=== PATIENT | male | born 1955 | race Caucasian/White ===

== ENCOUNTER → 2018-07-07 08:06 | Outpatient (CLI) | payer OTHER | END | disposition home or self-care (01) | LOC: D.US 08:06 | DX: R10.31 Right lower quadrant pain (principal) ==

== ENCOUNTER → 2018-09-22 06:59 | Outpatient (CLI) | payer OTHER ==
[2018-09-22 08:00] LABS: ALBUMIN 3.8 g/dL (3.4-5.0); BILIRUBIN - DIRECT 0.11 mg/dL (0.00-0.30); BILIRUBIN - INDIRECT 0.46 mg/dL (0.00-1.00); BILIRUBIN - TOTAL 0.57 mg/dL (0.2-1.3); PROTEIN - SERUM 7.3 g/dL (6.4-8.2)
== END | disposition home or self-care (01) ==
LOC: D.US 06:59
PROVIDERS: Internal Medicine Gastroenterology
DX: R93.89 Abnormal findings on diagnostic imaging of other specified body structures (principal); K82.8 Other specified diseases of gallbladder

== ENCOUNTER → 2018-09-29 07:42 | Outpatient (CLI) | payer OTHER | END | disposition home or self-care (01) | LOC: D.MRI 07:42 | DX: K76.9 Liver disease, unspecified (principal); R93.819 Abnormal radiologic findings on diagnostic imaging of unspecified testicle ==

== ENCOUNTER → 2018-10-20 07:31 | Outpatient (CLI) | payer OTHER | END | disposition home or self-care (01) | LOC: D.MRI 07:31 | DX: M54.12 Radiculopathy, cervical region (principal) ==

== ENCOUNTER → 2019-03-02 08:15 | Outpatient (CLI) | payer OTHER | END | disposition home or self-care (01) | LOC: D.US 08:15 | PROVIDERS: ATTEND Internal Medicine Cardiovascular Disease | DX: K76.0 Fatty (change of) liver, not elsewhere classified (principal) ==

== ENCOUNTER 2019-03-23 06:45 | Outpatient (CLI) | payer OTHER ==
[2019-03-02 09:04] LABS: ALBUMIN 4.1 g/dL (3.4-5.0); BILIRUBIN - DIRECT 0.19 mg/dL (0.00-0.30); BILIRUBIN - INDIRECT 0.95 mg/dL (0.00-1.00); BILIRUBIN - TOTAL 1.14 mg/dL (0.2-1.3); PROTEIN - SERUM 7.3 g/dL (6.4-8.2)
[~2019-03-23] VITALS: Ht 182.9 cm; Wt 100.5 kg
--- NOTE | ~2019-03-23 | HEMODYNAMI ---
PATIENT:THONY TIRADO MEDICAL RECORD: [id number] : 53 [facility] ADMISSION DATE: 03/23/19 Generatedon:03/23/20198:57 Patient name: THONY TIRADO Patient #: [id number] SSN: : 1955 Date of study: 03/23/2019 Page: Of Hemodynamic Procedure Report Patient Data Patient Demographics Procedure consent was obtained First Name: THONY Gender: Male Last Name: CELESTINO : 1955 [facility] Initial: PRANAV Age: 63 year(s) Patient #: [id number] Race: Unknown Additional ID: [id number] Contact details [address]: [address] [place] [address] State: [place] City: [place] Zip code: [address] Past Medical History Allergies Allergen Reaction Date Comments Reported Other allergy 03/23/2019 shellfish Admission Admission Data Admission Date: 03/23/2019 Admission Time: 6:45 Admit Source: Other Room #: D.RICH Weight (lbs.): 220.46 Weight (kg.): 100 Lab Results Lab Result Date: 03/23/2019 Lab Result Time: 7:37 Biochemistry Name Units Result Min Max BUN mg/dl 22 --(----)-* 7 18 Creatinine mg/dl 1.2 --(---*)-- 0.6 1.3 CBC Name Units Result Min Max Hematocrit % 51.2 --(---*)-- 42 54 Hemoglobin g/dl 18.9 --(----)-* 13.5 17.5 Procedure Procedure Types Cath Procedure Diagnostic Procedure C [facility] w/Coronaries Sedation Charges Moderate Sedation up to 15 minutes Procedure Description Procedure Date Procedure Date: 03/23/2019 Procedure Start Time: 8:39 Procedure End Time: 8:55 Procedure Staff Name Function Mark Anthony Rey MD Performing Physician Dk Fierro RT Monitor Rafael Morrow RT Scrub Rocco Merida RN Nurse Procedure Data Cath Procedure Fluoroscopy Diagnostic fluoroscopy Total fluoroscopy Time: 3.7 time: 3.7 min min Diagnostic fluoroscopy Total fluoroscopy dose: 915 dose: 915 mGy mGy Contrast Material Contrast Material Type Amount (ml) Isovue 300 96 Entry Location Entry Primary Successful Side Size Upsize Upsize Entry Closure Rey ccessful Closure Location (Fr) 1 (Fr) 2 (Fr) Remarks Device Remarks Radial Right 6 Fr Mechanical artery Short Compression Estimated blood loss: 5 ml Diagnostic catheters Device Type Used For End Catheter Placement DIAGNOSTIC Santiago 110cm Procedure 5Fr catheter ([id number]) DIAGNOSTIC [place] 110cm 5 Procedure Fr catheter ([id number]) DIAGNOSTIC Pigtail 5Fr Procedure catheter ([id number]) Procedure Complications No complications Procedure Medications Medication Administration Route Dosage Oxygen etCO2 Nasal cannula 2 l/min Lidocaine 2% added to field 20 Heparin Flush Bag added to field 2 bags (1000units/500ml NS) 0.9% NaCl I.V. 100 ml/hr Radial Cocktail I.A. 1 syringe (Verapamil 2mg/Nitro 400mcg/Heparin 1500units) Versed I.V. 2 mg Fentanyl I.V. 100 mcg Versed I.V. 1 mg Fentanyl I.V. 50 mcg Versed I.V. 1 mg Fentanyl I.V. 50 mcg Hemodynamics Rest HGB: 18.9 (g/dl) Heart Rate: 62 (bpm) Pressure Samples Time Site Value (mmHg) Purpose Heart Use Rate(bpm) 8:45 LV 146/6,19 Snapshot 66 Gradients Valve Time Site Site Mean SEP/DFP Peak To Heart Use 1 2 (mmHg) (sec/min) Peak Rate (mmHg) (bpm) Aortic 8:45 LV AO 71 Snapshots Pre Cath Intra NCS Post Cath Vital Signs Time Heart Resp SPO2 etCO2 NIBP (mmHg) Rhythm Pain Sedation Rate (ipm) (%) (mmHg) Status Level (bpm) 8:24:25 73 12 95 40 157/85(117) NSR 0 (11) 10(A) , No pain 8:29:12 71 13 93 13.5 158/82(114) NSR 0 (11) 10(A) , No pain 8:33:18 63 14 92 29.4 152/84(118) NSR 0 (11) 10(A) , No pain 8:37:22 63 13 92 0 146/85(115) NSR 0 (11) 9(A) , No pain 8:41:28 63 14 93 41.5 149/81(113) NSR 0 (11) 9(A) , No pain 8:45:31 75 16 93 0 129/77(96) NSR 0 (11) 9(A) , No pain 8:49:35 64 16 92 39.2 124/70(90) NSR 0 (11) 9(A) , No pain 8:53:41 70 14 94 38.5 129/68(102) NSR 0 (11) 10(A) , No pain Medications Time Medication Route Dose Verified Delivered Reason Notes Effectiveness by by 8:25:48 Oxygen etCO2 2 l/min Mark Anthony Buffie used for Nasal Candido Merida RN procedure cannula 8:25:56 Lidocaine 2% added 20ml Mark Anthony Mark Anthony for local to vial Candido Rey MD anesthetic field 8:26:02 Heparin Flush added 2 bags Mark Anthony Mark Anthony used for Bag to Candido Rey MD procedure (1000units/500ml field NS) 8:26:11 0.9% NaCl I.V. 100 Mark Anthony Buffie Per ml/hr Candido Merida RN physician 8:28:02 Radial Cocktail I.A. 1 Mark Anthony Mark Anthony for (Verapamil syringe Candido Rey MD vasodilation 2mg/Nitro 400mcg/Heparin 1500units) 8:33:21 Versed I.V. 2 mg Mark Anthony Buffie for sedation Candido Merida RN 8:33:27 Fentanyl I.V. 100 mcg Mark Anthony Buffie for sedation Candido Merida RN 8:35:31 Versed I.V. 1 mg Mark Anthony Buffie for sedation Candido Merida RN 8:35:35 Fentanyl I.V. 50 mcg Mark Anthony Buffie for sedation Candido Merida RN 8:40:00 Versed I.V. 1 mg Mark Anthony Buffie for sedation Candido Merida RN 8:40:03 Fentanyl I.V. 50 mcg Mark Anthony Buffie for sedation Candido Merida RN Procedure Log Time Note 8:09:41 Informed consent obtained and on chart 8:11:22 Lab Result : Hemoglobin 18.9 g/dl 8:11:22 Lab Result : Hematocrit 51.2 % 8:11:22 Lab Result : BUN 22 mg/dl 8:11:22 Lab Result : Creatinine 1.2 mg/dl 8:11:25 Admit Source: Other 8:11:37 Diagnostic Cath status Elective 8:11:38 Rafael Morrow RT(R) sent for patient. Start room use. 8:11:39 Time tracking: Regular hours (M-F 7:00 - 5:00) 8:11:42 Plan of Care:Hemodynamics will remain stable., Cardiac rhythm will remain stable., Comfort level will be maintained., Respiratory function will remain adequate., Patient/ family verbilizes understanding of procedure., Procedure tolerated without complication., Recovers from procedure without complications.. 8:12:40 Patient Weight : 220.46 lbs 8:13:07 H&P Date Dictated: 03/23/2019 Within 30 days and on chart., H&P Addendum completed by physician on day of procedure. (MUST COMPLETE FOR ALL OUTPATIENTS). 8:13:19 Patient allergic to Other allergyshellfish 8:13:20 Is the patient allergic to Iodine/contrast media? Yes. 8:13:21 Was the patient premedicated? Yes 8:13:26 Lab results completed and on chart. 8:16:55 Patient received from Pre/Post Procedure Room to [facility] 2 Alert and oriented. Tansferred to table in Supine position. 8:16:56 Warm blankets applied, and mehran hugger turned on for patient comfort. 8:16:56 Correct patient and procedure confirmed by team. 8:16:57 ECG and BP/O2 sat monitors applied to patient. 8:17:06 Pre-procedure instructions explained to patient. 8:17:06 Pre-op teaching completed and patient verbalized understanding. 8:17:07 Family in waiting room. 8:17:08 Patient NPO since Midnight. 8:22:43 Vital chart was started 8:25:48 Oxygen 2 l/min etCO2 Nasal cannula was administered by Rocco Merida RN; used for procedure; 8:25:56 Lidocaine 2% 20ml vial added to field was administered by Mark Anthony Rey MD; for local anesthetic; 8:26:02 Heparin Flush Bag (1000units/500ml NS) 2 bags added to field was administered by Mark Anthony Rey MD; used for procedure; 8:26:11 0.9% NaCl 100 ml/hr I.V. was administered by Buffie Merida RN; Per physician; 8:28:02 Radial Cocktail (Verapamil 2mg/Nitro 400mcg/Heparin 1500units) 1 syringe I.A. was administered by Mark Anthony Rey MD; for vasodilation; 8:30:51 Baseline sample Acquired. 8:30:54 Rhythm: sinus rhythm 8:30:55 Full Disclosure recording started 8:30:58 Is patient on blood thinner?No 8:30:58 Patient diabetic? Yes. 8:30:59 If diabetic: On Metformin? Yes 8:31:11 If on Metformin: Last Dose? 03/22/2019 8:31:15 Previous problem with sedation/anesthesia? No ? 8:31:17 Snore? Yes 8:31:18 Sleep apnea? Yes 8:31:18 Deviated septum? No 8:31:19 Opens mouth fully? Yes 8:31:20 Sticks out tongue? Yes 8:31:21 Airway obstruction? No ? 8:31:23 Dentures? No ? 8:31:27 Pre procedure: right dorsailis pedis pulse 3+ Increased pulse; moderate pressure to obliterate 8:31:29 Modified Juan's test Ulnar < 7 seconds 8:31:30 Patient pain scale 0/10 ?. 8:31:43 IV patent on arrival in left forearm with 0.9% NaCl at [facility]. 8:31:47 Right Radial & Right Groin area was prepped with chlora-prep and draped in sterile fashion 8:31:48 Alarms reviewed by R. N. 8:31:48 Sharps counted by scrub and verified by R.N. 8:31:50 Use device set Radial Dx or PCI 8:31:51 ACIST Syringe (94238) opened to sterile field. 8:31:52 Medline Cath Pack ([id number]) opened to sterile field. 8:31:52 Bag Decanter () opened to sterile field. 8:31:53 ACIST Hand Control (94124) opened to sterile field. 8:31:54 ACIST Manifold (79724) opened to sterile field. 8:31:54 Tegaderm 4 x 4 (1626W) opened to sterile field. 8:31:55 MBrace Wrist Support ([id number]) opened to sterile field. 8:31:56 EMERALD Guide Wire (664-396) opened to sterile field. 8:31:56 SHEATH 6FR Slender (74-7970) opened to sterile field. 8:31:58 NEEDLE Cook 21G 4cm Radial ([id number]) opened to sterile field. 8:32:51 Physician arrived 8:32:51 --------ALL STOP TIME OUT------ 8:32:52 Final Timeout: patient, procedure, and site verified with staff and physician. All members of the team are in agreement. 8:32:53 Right Radial & Right Groin site verified by team. 8:32:57 Maximum allowable Isovue 300 dose 300ml. Physician notified. (300ml for normal creatinines. For patients with creatinine of 1.7 or higher multiply weight(kg) x 5 divided by creatinine.) 8:33:08 Fire Safety Assessment: A--An alcohol-based skin anteseptic being used preoperatively., C--Open oxygen or nitrous oxide is being used., D--An ESU, laser, or fiber-optic light is being used. 8:33:13 Physical assessment completed. ASA score P 2 - A patient with mild systemic disease as per Mark Anthony Rey MD. 8:33:15 Sedation plan: IV Moderate Sedation Medication:Versed, Fentanyl 8:33:21 Versed 2 mg I.V. was administered by Rocco Merida RN; for sedation; 8:33:27 Fentanyl 100 mcg I.V. was administered by Rocco Merida RN; for sedation; 8:34:42 Zero performed for pressure channel P1 8:34:58 Zero performed for pressure channel P1 8:35:31 Versed 1 mg I.V. was administered by Rocco Merida RN; for sedation; 8:35:35 Fentanyl 50 mcg I.V. was administered by Rocco Merida RN; for sedation; 8:39:09 Procedure started. 8:39:12 Local anesthetic to right radial artery with Lidocaine 2% by Mark Anthony Rey MD.INITIAL ACCESS ONLY 8:40:00 Versed 1 mg I.V. was administered by Rocco Merida RN; for sedation; 8:40:03 Fentanyl 50 mcg I.V. was administered by Rocco Merida RN; for sedation; 8:44:04 A 6 Fr Short sheath was inserted into the Right Radial artery 8:44:09 A DIAGNOSTIC Santiago 110cm 5Fr catheter (162277) was advanced over the wire and used for Procedure. 8:44:53 LV hemodynamics recorded. 8:45:12 LV gram done using VEGAS 8:45:16 Injector settings: Ml/sec: 5, Volume: 15, 8:45:28 EF : 60 % 8:47:33 Catheter exchanged over wire. 8:47:36 A DIAGNOSTIC [place] 110cm 5 Fr catheter ([id number]) was advanced over the wire and used for Procedure. 8:48:53 LCA angiography performed. 8:50:13 RCA angiography performed. 8:51:27 Catheter exchanged over wire. 8:51:32 A DIAGNOSTIC Pigtail 5Fr catheter ([id number]) was advanced over the wire and used for Procedure. 8:52:56 Aortic Root visualized 8:53:37 Catheter removed. 8:53:39 TR BAND Standard ([id number]) opened to sterile field. 8:53:52 Sheath removed intact; hemostasis achieved with Mechanical Compression to the Right Radial artery. 8:53:53 Procedure ended.(Physican Out) 8:54:04 Fluoroscopy time 03.70 minutes. 8:54:08 Fluoroscopy dose: 915 mGy 8:54:08 Flurop Dose total: 915 8:54:14 Contrast amount:Isovue 300 96ml. 8:54:16 Sharps counted by scrub and verified by R.N. 8:54:19 TR band inflated with 12cc of air. 8:54:20 Insertion/operative site no bleeding no hematoma. 8:54:24 Post right radial artery:stable, soft, clean and dry 8:54:25 Post Procedure Pulses reassessed and unchanged 8:54:28 Post-procedure physical assessment completed. ASA score P 2 - A patient with mild systemic disease as per Mark nAthony Rey MD. 8:54:30 Post procedure rhythm: unchanged. 8:54:52 Estimated blood loss: 5 ml 8:55:20 Post procedure instruction explained to patient.Patient verbalizes understanding. 8:55:21 Patient needs reinforcement of post procedure teaching. 8:55:32 Procedure type changed to Cath procedure, Diagnostic procedure, LHC, LHC w/Coronaries, Sedation Charges, Moderate Sedation up to 15 minutes 8:55:49 Procedure and supply charges have been captured, reviewed, submitted and are correct. 8:55:51 Procedure Complication : No complications 8:55:53 Vital chart was stopped 8:55:53 See physician's report for complete and final results. 8:55:55 Report given to Pre/Post Procedure Room. 8:55:57 Patient transfered to Pre/Post Procedure Room with Stretcher. 8:55:59 Procedure ended. 8:55:59 Full Disclosure recording stopped 8:56:04 End room use (Document Last) Device Usage Item Name Manufacture Quantity Catalog Hospital Part Current Minimal Lot# / Number Charge Number Stock Stock Serial# Code ACIST Acist 1 34957 035847 856647 [id number] 20 Syringe Medical (35671) Systems Inc Medline Medline 1 [id number] 782396 21289 722043 5 Cath Pack ([id number]) Bag Microtek 1 2001S 773925 17112 360379 5 Decanter Medical Inc. () ACIST Hand Acist 1 09767 381713 559176 558418 5 Control Medical (87056) Systems Inc ACIST Acist 1 40840 050457 825509 793925 5 Manifold Medical (26097) Systems Inc Tegaderm 4 3M 1 1626W 383557 923421 973275 5 x 4 (1626W) MBrace Advanced 1 140-0250-00 492901 49108 090490 5 Wrist Vascular Support Dynamics ([id number]) EMERALD Cardinal 1 502-455 845327 998045 040470 5 Guide Wire Health (502-455) SHEATH 6FR Terumo 1 [id number] 225548 929031 362454 5 Slender (80-1060) NEEDLE Cook [place] [employer] 1 [id number] 461657 367756 105903 5 21G 4cm Radial ([id number]) DIAGNOSTIC Terumo 1 40-5023 219836 841946 225496 5 Santiago 110cm 5Fr catheter (829969) DIAGNOSTIC Terumo 1 40-5013 010947 573858 213434 5 [place] 110cm 5 Fr catheter (513322) DIAGNOSTIC Cardinal 1 [id number] 659184 764020 046938 5 Pigtail 5Fr Health catheter (097821N) TR BAND Terumo 1 [id number] 682698 737348 246826 40 Standard ([id number]) Signature [facility] [place] Stage Time Signature Unsigned Intra-Procedure 03/23/2019 Dk Fierro 8:56:55 AM RT(R) Signatures Monitor : Dk Fierro RT Signature : Date : Time : [place] [id number] [place] [address]
[2019-03-23] MEDS ORDERED: NEURONTIN600 MG PO (07:13)
[2019-03-23] MEDS ORDERED: ACCUPRIL20 MG PO (07:14)
[2019-03-23] MEDS ORDERED: HCTZ25 MG PO (07:14)
[2019-03-23] MEDS ORDERED: ARTHROTEC EC 71 EACH PO (07:14)
[2019-03-23] MEDS ORDERED: GLUCOPHAGE500 MG PO (07:15)
[2019-03-23] MEDS ORDERED: TIROSINT25 MCG PO (07:15)
[2019-03-23] MEDS ORDERED: PRAVACHOL20 MG PO (07:16)
[2019-03-23] MEDS ORDERED: TRAZODONE HCL150 MG PO (07:16)
[2019-03-23] MEDS ORDERED: NORVASC5 MG PO (07:16)
[2019-03-23] MEDS ORDERED: MARINOL10 MG PO (07:17)
[2019-03-23] MEDS ORDERED: KLONOPIN0.5 MG PO (07:17)
[2019-03-23] MEDS ORDERED: BAYER CHEWABLE81 MG PO (07:17)
[2019-03-23] MEDS ORDERED: ROBAXIN500 MG PO (07:18)
[2019-03-23 07:32] VITALS: BP 150/86; Ht 182.9 cm; Wt 100.5 kg
[2019-03-23 07:40] LABS: BASOPHILS 0.1 % (0-2); EOSINOPHILS 0.1 % (0-7); HEMATOCRIT 51.2 % (42.0-54.0); HEMOGLOBIN 18.9 g/dL (13.5-17.5); IMMATURE GRANULOCYTES 0.5 % (0-5); LYMPHOCYTES 7.1 % (15-50); MCH 34.5 pg (26.0-34.0); MCHC 36.9 g/dL (31.0-37.0); MCV 93.4 fL (80.0-100.0); MEAN PLATELET VOLUME 12.7 fL (7.4-10.4); MONOCYTES 4.1 % (2-11); NEUTROPHILS 88.1 % (40-80); PLATELET COUNT 156 10x3/uL (130-400); RBC 5.48 10x6/uL (4.20-6.10); RDW 14.2 % (11.5-14.5); WBC 13.5 10x3/uL (4.8-10.8)
[2019-03-23 07:49] LABS: ANION GAP 11.3 mmol/L (8-16); CALCIUM 9.2 mg/dL (8.5-10.1); CARBON DIOXIDE 29.7 mmol/L (21.0-32.0); CREATININE - SERUM 1.2 mg/dL (0.6-1.3)
--- NOTE | 2019-03-23 09:00 | NUR ---
PT RECEIVED VIA STRETCHER FROM FINGERPRINT CLERK FOR RECOVERY. PT ASLEEP BUT VERBALLY AROUSABLE. TR BAND AND IMMOBILIZER IN PLACE, DRESSING CDI NO BLEEDING OR HEMATOMA NOTED. ARM PINK AND WARM, CAP REFILL BRISK. IV TO LFA INFUSING VIA ORDERS. HR NSR RATE 64, BP 121/70, O2 SAT 91 ON ROOM AIR, O2 PLACED VIA NC AT 2L. CALL LIGHT IN REACH, AT BEDSIDE
--- NOTE | 2019-03-23 09:45 | NUR ---
PT RESTING COMFORTABLY, TR BAND IN PLACE, DRESSING CDI NO BLEEDING OR HEMATOMA NOTED. AT BEDSIDE, CALL LIGHT IN REACH
--- NOTE | 2019-03-23 10:00 | NUR ---
HOB ELEVATED, SANDWICH TRAY AND SPRITE SERVED. 3 CC AIR REMOVED FROM TR BAND, NO BLEEDING OR SWELLING NOTED. VSS. CALL LIGHT IN REACH
--- NOTE | 2019-03-23 10:30 | NUR ---
PT RESTING W/O COMPLAINTS. 3 MORE CC AIR REMOVED FROM TR BAND, NO BLEEDING OR SWELLING NOTED. PT DENIES NEEDS AT THIS TIME. REMAINS AT BEDSIDE, CALL LIGHT IN REACH
--- NOTE | 2019-03-23 10:50 | NUR ---
DISCHARGE INSTRUCTIONS REVIEWED W PT AND , BOTH VERBALIZED UNDERSTANDING. IV REMOVED W CATH INTACT, MONITORS REMOVED AND PT UP TO DRESS FOR DISCHARGE.
--- NOTE | 2019-03-23 11:00 | NUR ---
REMAINING AIR AND TR BAND REMOVED W/O BLEEDING OR HEMATOMA NOTED. 2X2 AND TEGADERM DRESSING APPLIED. PT DISCHARGED VIA WC TO PRIVATE VEHICLE PER .
== END 2019-03-23 11:05 | disposition home or self-care (01) ==
LOC: D.HCCARDIO 06:45 → D.CLR 07:00 → D.HCCARDIO 08:30
PROVIDERS: ATTEND Internal Medicine Cardiovascular Disease
DX: R94.30 Abnormal result of cardiovascular function study, unspecified (principal); I20.0 Unstable angina

== ENCOUNTER → 2019-04-13 07:55 | Outpatient (CLI) | payer OTHER ==
[~2019-04-13 07:55] MED LIST: ACCUPRIL20 MG PO; ARTHROTEC EC 71 EACH PO; BAYER CHEWABLE81 MG PO; GLUCOPHAGE500 MG PO; HCTZ25 MG PO; KLONOPIN0.5 MG PO; MARINOL10 MG PO; NEURONTIN600 MG PO; NORVASC5 MG PO; PRAVACHOL20 MG PO; ROBAXIN500 MG PO; TIROSINT25 MCG PO; TRAZODONE HCL150 MG PO
== END | disposition home or self-care (01) ==
LOC: D.NM 07:55
PROVIDERS: ATTEND Internal Medicine Gastroenterology
DX: K83.8 Other specified diseases of biliary tract (principal); K76.0 Fatty (change of) liver, not elsewhere classified; R10.11 Right upper quadrant pain

== ENCOUNTER → 2019-08-31 08:42 | Outpatient (CLI) | payer OTHER, MEDICARE ==
[2019-08-31 10:06] LABS: ALBUMIN 4.2 g/dL (3.4-5.0); BILIRUBIN - DIRECT 0.22 mg/dL (0.00-0.30); BILIRUBIN - INDIRECT 1.19 mg/dL (0.00-1.00); BILIRUBIN - TOTAL 1.41 mg/dL (0.2-1.3); PROTEIN - SERUM 7.2 g/dL (6.4-8.2)
== END | disposition home or self-care (01) ==
LOC: D.LAB 04-13 08:15 → D.US 08:30 → D.LAB 08:42
PROVIDERS: ATTEND Internal Medicine Gastroenterology
DX: K76.0 Fatty (change of) liver, not elsewhere classified (principal); R10.11 Right upper quadrant pain; K83.8 Other specified diseases of biliary tract

== ENCOUNTER → 2020-03-01 08:05 | Outpatient (CLI) | payer MEDICARE, OTHER ==
[2020-03-01 09:12] LABS: ALBUMIN 4.1 g/dL (3.4-5.0); BILIRUBIN - DIRECT 0.21 mg/dL (0.00-0.30); BILIRUBIN - INDIRECT 0.89 mg/dL (0.00-1.00); BILIRUBIN - TOTAL 1.1 mg/dL (0.2-1.3); PROTEIN - SERUM 7.2 g/dL (6.4-8.2)
== END | disposition home or self-care (01) ==
LOC: D.US 08:00
PROVIDERS: ATTEND Internal Medicine Gastroenterology
DX: K76.0 Fatty (change of) liver, not elsewhere classified (principal)